=== PATIENT | male | born 1990 | race Caucasian/White ===

== ENCOUNTER 2023-11-22 01:41 | Emergency (ER) | payer BC ==
[2023-11-22 01:45] VITALS: RESP 16
--- NOTE | 2023-11-22 01:52 | ED ---
Animal Bite HPI - General Chief Complaint: Animal Bite Stated Complaint: Animal Bite - Lft Hand Time Seen by Provider: 11/22/23 01:51 Source: patient, RN notes reviewed Mode of arrival: ambulatory Limitations: no limitations - History of Present Illness Initial Comments: 32-year-old male presented to ER with a chief complaint of a dog bite. Patient states approximately 20 minutes prior to arrival his dog ran into his room and started to have a seizure. He states he wrapped a towel around his hand to try to stop the dog from biting his tongue. He states the dog accidentally bit his hand during this process. His tetanus is up-to-date. Dog is up-to-date on vaccinations. He denies any other injuries. - Related Data Home Medications Medication Instructions Recorded Confirmed Escitalopram [Lexapro] 10 mg PO DAILY 10/14/14 10/14/14 Previous Rx's Medication Instructions Recorded Amoxic-Pot Clav 875-125Mg 1 tab PO Q12HR #20 tab 11/22/23 [Augmentin 875-125] Allergies Allergy/AdvReac Type Severity Reaction Status Date / Time tree nut [Tree Nut] Allergy Anaphylaxis Verified 11/22/23 01:45 Review of Systems ROS Statement: Those systems with pertinent positive or pertinent negative responses have been documented in the HPI. ROS Other: All systems not noted in ROS Statement are negative. Past Medical History Past Medical History: No Reported History History of Any Multi-Drug Resistant Organisms: None Reported Additional Past Surgical History / Comment(s): skin graft left finer r/t work accident Past Psychological History: Depression Smoking Status: Vaper Past Alcohol Use History: Occasional Past Drug Use History: None Reported General Exam Limitations: no limitations General appearance: alert, in no apparent distress Respiratory exam: Present: normal lung sounds bilaterally. Absent: respiratory distress, wheezes, rales, rhonchi, stridor Cardiovascular Exam: Present: regular rate, normal rhythm, normal heart sounds. Absent: systolic murmur, diastolic murmur, rubs, gallop, clicks Extremities exam: Present: normal inspection, full ROM, normal capillary refill, other (3 superficial puncture wounds to palmar aspect of left hand. No active bleeding. Patient has full active range of motion. 2+ left radial pulse. Sens ation intact.). Absent: tenderness, pedal edema, joint swelling, calf tenderness Skin exam: Present: warm, dry, intact, normal color. Absent: rash Course Vital Signs 11/22/23 11/22/23 01:42 02:27 Temperature 97.8 F 97.9 F Pulse Rate 83 88 Respiratory 16 16 Rate Blood Pressure 132/88 129/84 O2 Sat by Pulse 97 97 Oximetry Medical Decision Making - Medical Decision Making Was pt. sent in by a medical professional or institution (, ENRIQUE, CHRONIC CONDITION NURSE, urgent ca re, hospital, or detention...) When possible be specific @ -No Did you speak to anyone other than the patient for history (EMS, parent, family, police, friend...)? What history was obtained from this source @ -No Did you review nursing and triage notes (agree or disagree)? Why? @ -I reviewed and agree with nursing and triage notes Were old charts reviewed (outside hosp., previous admission, EMS record, old EKG, old radiological studies, urgent care reports/EKG's, detention records)? Report findings @ -No old charts were reviewed Differential Diagnosis (chest pain, altered mental status, abdominal pain women, abdominal pain men, vaginal bleeding, weakness, fever, dyspnea, syncope, headache, dizziness, GI bleed, back pain, seizure, CVA, palpatations, mental health, musculoskeletal)? @ -Cellulitis, dog bite, abscess This list is not meant to be all-inclusive EKG interpreted by me (3pts min.). @ -None X-rays interpreted by me (1pt min.). @ -Left hand x-ray interpreted by me negative for acute osseous process. CT interpreted by me (1pt min.). @ -None done U/S interpreted by me (1pt. min.). @ -None done What testing was considered but not performed or refused? (CT, X-rays, U/S, labs)? Why? @ -None What meds were considered but not given or refused? Why? @ -None Did you discuss the management of the patient with other professionals (professionals i.e. ENRIQUE Patrick, CHRONIC CONDITION NURSE, lab, RT, psych nurse, perinatal social worker, corporate quality manager, teacher, [employer] revenue officer, director of casework)? Give summary @ -No Was smoking cessation discussed for >3mins.? @ -No Was critical care preformed (if so, how long)? @ -No Were there social determinants of health that impacted care today? How? (Homelessness, low income, unemployed, alcoholism, drug addiction, transportation, low edu. Level, literacy, decrease access to med. care, usp, rehab)? @ -No Was there de-escalation of care discussed even if they declined (Discuss DNR or withdrawal of care, Hospice)? DNR status @ -No What co-morbidities impacted this encounter? (DM, HTN, Smoking, COPD, CAD, Cancer, CVA, ARF, Chemo, Hep., AIDS, mental health diagnosis, sleep apnea, morbid obesity)? @ -None Was patient admitted / discharged? Hospital course, mention meds given and route, prescriptions, significant lab abnormalities, going to OR and other pertinent info. @ -Discharge. 32-year-old male presented to ER with chief complaint of a dog bite. History and physical exam. Vitals stable. Exam remarkable for 3 puncture wounds to the aspect of left hand. Patient has full active range of motion. Left upper extremity neurovascular intact. There is also a small wound to left second digit distally. No active bleeding. Patient's tetanus is up-to-date, per patient. X-rays obtained negative for acute osseous process. Wound cleaned with iodine and sterile water. Augmentin prescribed, first dose in the ER. Strict return parameters discussed. Patient discharged in stable condition with follow-up to PCP. Patient verbally expressed understanding. Case discussed with ED attending, Dr. Hitchcock. Undiagnosed new problem with uncertain prognosis? @ -No Drug Therapy requiring intensive monitoring for toxicity (Heparin, Nitro, Insulin, Cardizem)? @ -No Were any procedures done? @ -No Diagnosis/symptom? @ -Dog bite Acute, or Chronic, or Acute on Chronic? @ -Acute Uncomplicated (without systemic symptoms) or Complicated (systemic symptoms)? @ -Uncomplicated Side effects of treatment? @ -No Exacerbation, Progression, or Severe Exacerbation? @ -No Poses a threat to life or bodily function? How? (Chest pain, [place], DC, pneumonia, PE, COPD, DKA, ARF, appy, cholecystitis, CVA, Diverticulitis, Homicidal, Suicidal, threat to staff... and all critical care pts) @ -Low likelihood at this time - Radiology Data Radiology results: report reviewed, image reviewed Disposition Clinical Impression: Dog bite Disposition: HOME SELF-CARE Condition: Stable Instructions (If sedation given, give patient instructions): Animal Bite (ED) Additional Instructions: Please keep area clean and dry. Monitor for signs of infection including surrounding redness, drainage or increasing swelling. Complete full course of Augmentin. Follow-up with PCP. Return to the ER for any new or worsening concerns. Prescriptions: Amoxic-Pot Clav 875-125Mg [Augmentin 875-125] 1 tab PO Q12HR #20 tab Is patient prescribed a controlled substance at d/c from ED?: No Referrals: Suman Henley DO [Primary Care Provider] - 1-2 days Time of Disposition: 02:20
--- NOTE | 2023-11-22 02:14 | XR ---
EXAM: XR Left Hand Complete, 3 or More Views CLINICAL HISTORY: ITS.REASON XR Reason: dog bite TECHNIQUE: Frontal, lateral and oblique views of the left hand. COMPARISON: No relevant prior studies available. FINDINGS: Bones/joints: No acute fracture. No dislocation. Soft tissues: Soft tissue swelling distal second finger. No radiopaque foreign body. IMPRESSION: Soft tissue swelling distal second finger. No acute osseous findings.
[2023-11-22] MEDS: AMOXIC-POT CLAV 875-125MG 1 EACH TAB PO STA (02:25)
[2023-11-22 02:36] VITALS: BP 129/84; PULSE 88; TEMP 97.9
== END 2023-11-22 02:27 | disposition home or self-care (01) ==
LOC: EC 01:41
DX: S61.452A Open bite of left hand, initial encounter (principal); W54.0XXA Bitten by dog, initial encounter
CPT/HCPCS: 99283